=== PATIENT | male | born 1970 | race Caucasian/White ===

== ENCOUNTER 2023-05-25 08:52 | Outpatient (CLI) | payer OTHER ==
[2023-05-25] MEDS ORDERED: Magnevist 469MG/ML 20 ML VIAL ONE (09:14)
== END 2023-05-25 08:53 | disposition home or self-care (01) ==
LOC: CSHMRI 08:52
PROVIDERS: ATTEND Neurological Surgery
DX: D33.4 Benign neoplasm of spinal cord (principal); G95.89 Other specified diseases of spinal cord; M47.817 Spondylosis without myelopathy or radiculopathy, lumbosacral region; M48.07 Spinal stenosis, lumbosacral region
CPT/HCPCS: 72158